=== PATIENT | female | born 1990 | race Caucasian/White ===

== ENCOUNTER 2025-08-03 08:44 | Emergency (ER) | payer SELFPAY ==
[~2025-08-03] VITALS: Ht 177.8 cm; Wt 70.0 kg
[2025-08-03 08:55] VITALS: O2SAT 99
[2025-08-03 10:18] VITALS: BP 101/67; PULSE 93; RESP 18; TEMP 36.7; O2SAT 99
== END 2025-08-03 10:20 | disposition home or self-care (01) ==
LOC: ER 08:53
DX: S39.012A Strain of muscle, fascia and tendon of lower back, initial encounter (principal); X50.1XXA Overexertion from prolonged static or awkward postures, initial encounter; Y93.89 Activity, other specified; Y92.89 Other specified places as the place of occurrence of the external cause; Y99.8 Other external cause status
CPT/HCPCS: 99282; Z7610 ×2